=== PATIENT | male | born 2005 | race Asian ===

== ENCOUNTER 2023-09-18 02:28 | Emergency (ER) | payer OTHER, SELFPAY ==
[2023-09-18 02:39] VITALS: BP 154/89; PULSE 77; RESP 20; TEMP 36.5; O2SAT 96; BMI 27.9
--- NOTE | 2023-09-18 02:47 | ED.PSYCH ---
HPI - Psych General Date Seen: 09/18/23 Chief Complaint: Psychiatric Problem/Disorder Stated Complaint: suicidal Time Seen by Provider: 09/18/23 02:32 Source: patient Mode of arrival: other ([employer]) Limitations: no limitations History of Present Illness HPI Narrative: Patient is a 18-year-old male with no pertinent medical problems presenting to emergency department for suicidal ideation. He is brought in by [employer]. He states some people he knew no post is an Instagram post said accused him of doing something he claims he did not do. After that he was depressed and suicidal. This has been going on for the past few hours. He states he had a lot of caffeine pills in his room and he was thinking about taking them. Patient then told his friend about his thoughts and they called [employer] who brought him to the emergency department. He has no history of self-harm. Does states he had thoughts of suicide a few years ago but never made any plan or had any attempts. Denies homicidal ideation. Denies visual or auditory hallucinations. Denies headache, vision changes, chest pain, shortness of breath, weakness, numbness. Related Data Home Medications Medication Instructions Recorded Confirmed No Known Home Medications 09/18/23 09/18/23 Allergies Allergy/AdvReac Type Severity Reaction Status Date / Time No Known Drug Allergies Allergy Verified 09/18/23 02:43 Review of Systems Status of ROS: Reports: 10 or more systems reviewed and unremarkable except as noted in History and below Exam Narrative: Exam Narrative: Const: Well-nourished, Well-developed, in mild distress Eyes: PERRL, no conjunctival injection, and symmetrical lids HENT: Atraumatic external nose and ears. Moist mucous membranes. Neck: Symmetric, trachea midline, No thyromegaly. CVS: RRR, No murmurs or gallops. Peripheral pulses 2+ and equal in all extremities RESP: Unlabored respiratory effort. Clear to auscultation bilaterally. GI: Nontender/Nondistended, No rebound or guarding. MSK:Extremities w/o deformity, Normal Active ROM Skin: Warm, Dry. No rashes or lesions. Neuro: Normal Muscle tone, No focal neurological deficits. Psych: Awake, Alert, & Oriented x3. Appropriate mood and affect. Const: Vital Signs, click to edit/add: Vital Signs - 24 hr 09/18/23 02:39 Temperature 97.7 F Pulse Rate [Pulse Oximeter] 77 Respiratory Rate 20 Blood Pressure [Ri ght Upper Arm] 154/89 H Pulse Oximetry 96 Oxygen Delivery Me thod Room Air Course Vital Signs Vital signs: Initial Vital Signs Temperature 97.7 F 09/18/23 02:39 Temperature Source Temporal Artery Scan 09/18/23 02:39 Pulse Rate 77 09/18/23 02:39 Pulse Strength 3+ Normal 09/18/23 02:39 Respiratory Rate 20 09/18/23 02:39 Blood Pressure 154/89 H 09/18/23 02:39 Blood Pressure Mean 110 H 09/18/23 02:39 Blood Pressure Position Sitting 09/18/23 02:39 Pulse Oximetry 96 09/18/23 02:39 Oxygen Delivery Method Room Air 09/18/23 02:39 Vital Signs Temperature 97.7 F 09/18/23 02:39 Pulse Rate 77 09/18/23 02:39 Respiratory Rate 20 09/18/23 02:39 Blood Pressure 154/89 H 09/18/23 02:39 Pulse Oximetry 96 09/18/23 02:39 Oxygen Delivery Method Room Air 09/18/23 02:39 Temperature 97.7 F 09/18/23 02:39 Pulse Rate 77 09/18/23 02:39 Respiratory Rate 20 09/18/23 02:39 Blood Pressure 154/89 H 09/18/23 02:39 Pulse Oximetry 96 09/18/23 02:39 Oxygen Delivery Method Room Air 09/18/23 02:39 MDM - Psych MDM Narrative Medical decision making narrative: Patient is 18-year-old male presents to the emergency department for mental health evaluation. After speaking him do not think he is an imminent threat to hurt himself or others per we will have him evaluated by [facility]. Do of the lab work is necessary at this time as I expect the patient to be discharged. He was evaluated by [facility] and they also determined he is safe to go home. They made a safety plan and the patient states he will reach out to resources at his camp is. He will go back and stay with his friends. Safety plan was made. He will be discharged at this time he is agreeable to this plan. Discharge Plan Discharge Clinical Impression: Depression Patient Disposition: Home, Self-Care Condition: Stable Instructions: Depression (ED) Additional Instructions: Make sure to follow safety plan you created with [facility]. Is important you reach out to your campus resources. Return to emergency department for new worsening symptoms Prescriptions: No Action No Known Home Medications Follow Up/Referrals: Provider,Not a Local [Primary Care Provider] - Stand Alone Forms: CBIT A/S Info Instructions
== END 2023-09-18 07:20 | disposition home or self-care (01) ==
PROVIDERS: Emergency Provider Student in an Organized Health Care Education/Training Program
DX: F32.A Depression, unspecified (principal)
CPT/HCPCS: 99282; 99283

== ENCOUNTER 2024-10-06 15:32 | Emergency (ER) | payer OTHER, SELFPAY ==
--- OUTSIDE RECORDS SUMMARY | 2024-10-06 15:34 | XMS_ITS | Clinical Summary ---
Author Organization [employer] [employer] [facility] Address [address] [place] [id number] Care Team Providers Care Drilling And Production Superintendent Name Role Phone Josh Saul MD Primary Care P rovider Allergies No known active allergies Medications FLUoxetine (PROzac) 20 mg capsule Take 20 mg by mouth once daily. Active Encounters Date Type Department Care Team Description 07/22/2024 Patient Outreach [facility] - Care Management Navigation/[facility] [address] [place] [id number] Edna Joyner [facility]-Community Resource Navigation from Last 3 Months Immunizations Immunization Administration Dates Next Due MMR 11/05/2022,07/30/2022 Meningococcal Vaccine (Menactra) 07/30/2022 Polio Virus, Unspecified 08/02/2022 Tdap 07/30/2022 Social History Tobacco Use Types Packs/Day Years Used Date Smoking Tobacco: Some Days Cigarettes Smokeless Tobacco: Never Tobacco Cessation:Ready to Q uit: Not Asked; Counseling Given: Not Answered Alcohol Use Standard Drinks/Week Comments Yes 0 (1 standard drink = 0.6 oz pur e alcohol) a couple beers on the weekend Social Connections Answer Date Recorded Do you often feel lonely or isolated from those around you? 0 07/02/2024 Financial Resource Strain Answer Date R ecorded Difficulty of Paying Living Expenses 1 07/02/2024 Difficulty of Paying Living Expenses 2 07/02/2024 Food Insecurity Answer Date Recorded Do you worry your food will run out before you are able to buy more? 1 07/02/2024 Transportation Needs Answer Date Record ed Does lack of transportation keep you from medica l appointments? 2 07/02/2024 Does lack of transportation keep you from work, meetings or getting things that you need? 1 07/02/2024 Housing Stability Answer Date Recorded What is your housing situation today? 1 07/02/2024 Utilities Answer Date Recorded Do you have trouble paying f or utilities (for example, heat, electricity, water, phone)? 1 07/02/2024 Sex and Gender Information Value Date Recorded Sex Assigned at Not on file Legal Sex Male 3:12 PM SHIP PURSER Gender Identity Not on file Sexual Orientation Not on file Obstetrics History Last Filed Vital Signs Vital Sign Reading Time Taken Comments Blood Pressure 118/79 07/02/2024 10:07 AM SHIP PURSER Pulse 79 07/02/2024 10:07 AM SHIP PURSER Temperature - - Respiratory Rate - - Oxygen Saturation 100% 07/02/2024 10: 07 AM SHIP PURSER Inhaled Oxygen Concentration - - Weight 91.5 kg (201 lb 12.8 oz) 025 10:07 AM SHIP PURSER Height - - Body Mass Index - - Plan of Treatment Health Maintenance Due Date Last Done Comments Depression screening for age 12+ 2015 HIV for age 15-65 2018 HPV series for age 9-26 (1 - Male 3-dose series) 2018 BMI (ht and wt on same day) for age 18+ 2021 Pneumococcal series for age 6-49 (1 of 2 - PCV) 2022 COVID-19 vaccine series ( - season) 2024 Influenza Vaccine (Season Ended) 2025 Tetanus booster 07/30/2032 07/30/2022 Meningococcal series for age 11-21 Aged Out 2022 No longer eligible based on patient's age to complete this topic Tdap Completed 07/30/2022 Hepatitis C screening for ag e 18-79 Completed 07/02/2024 Procedures Procedure Name Priority Date/Time Associated Diagnosis Comments ANTI HCV Routine 07/02/2024 10:53 AM SHIP PURSER Hepatitis B surface antigen positive from Last 3 Months or Most Recently Relevant to Health Maintenance Results * ANTI HCV (07/02/2024 10:53 AM SHIP PURSER) HEPATITIS C ANTIBODY NON-REACTI VE NON-REACT STEPH [facility] Comment: HCV antibody was non-reactive. There is no laboratory evidence of HCV infection. In most cases, no further action is required. However, if recent HCV exposure is suspected, a test for HCV RNA (test code 87454) is suggested. For additional information please refer to http://education.Snipi/faq/BSI01k7 (This link is being provided for informational/ educational purposes only.) Blood BLOOD SPECIMEN / Unknown 07/02/2024 10:53 AM SHIP PURSER 07/02/2024 10:53 AM SHIP PURSER Josh Saul MD SEND OUTS Final Result [employer] [facility] [address] [place] [address], [facility] [address] [place] [address] from Last 3 Months or Most Recently Relevant to Health Maintenance Insurance [facility] PPO Care Teams Drilling And Production Superintendent Relationship Specialty Start Date End Date Josh Saul MD [address] [place] [id number] PCP - General Family Practice 07/02/24
[2024-10-06 15:39] VITALS: BP 156/88; PULSE 82; RESP 18; TEMP 36.8; O2SAT 98; BMI 28.8
--- OUTSIDE RECORDS SUMMARY | 2024-10-06 16:04 | XMS_ITS | Clinical Summary ---
Author Organization [email or web address] [facility] Address [address] [place] [address] Care Team Providers Care Zipper Sewing Machine Operator Name Role Phone Josh Saul MD Primary Care P rovider Allergies No known active allergies Medications FLUoxetine (PROzac) 20 mg capsule Take 20 mg by mouth once daily. 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 DISK ASSEMBLER Gender Identity Not on file Sexual Orientation Not on file Obstetrics History Last Filed Vital Signs Vital Sign Reading Time Taken Comments Blood Pressure 118/79 07/02/2024 10:07 AM GRAPHITE DISK ASSEMBLER Pulse 79 07/02/2024 10:07 AM GRAPHITE DISK ASSEMBLER Temperature - - Respiratory Rate - - Oxygen Saturation 100% 07/02/2024 10: 07 AM GRAPHITE DISK ASSEMBLER Inhaled Oxygen Concentration - - Weight 91.5 kg (201 lb 12.8 oz) 025 10:07 AM GRAPHITE DISK ASSEMBLER Height - - Body Mass Index - [...] Comments ANTI HCV Routine 07/02/2024 10:53 AM GRAPHITE DISK ASSEMBLER Hepatitis B surface antigen positive from Last 3 Months or Most Recently Relevant to Health Maintenance Results * ANTI HCV (07/02/2024 10:53 AM GRAPHITE DISK ASSEMBLER) HEPATITIS C ANTIBODY NON-REACTI VE NON-REACT STEPH [facility] Comment: HCV antibody was non-reactive. There is no laboratory evidence of HCV infection. In most cases, no further action is required. However, if recent HCV exposure is suspected, a test for HCV RNA (test code 27365) is suggested. For additional information please refer to http://education.IAT-Auto/faq/GGL36s3 (This link is being provided for informational/ educational purposes only.) Blood BLOOD SPECIMEN / Unknown 07/02/2024 10:53 AM GRAPHITE DISK ASSEMBLER 07/02/2024 10:53 AM GRAPHITE DISK ASSEMBLER Josh Saul MD SEND OUTS Final Result [employer] [facility] [address] [place] [address], [facility] [address] [place] [address] from Last 3 Months or Most Recently Relevant to Health Maintenance Insurance [facility] PPO Care Teams Zipper Sewing Machine Operator Relationship Specialty Start Date End Date Josh Saul MD [address] [place] [id number] PCP - General Family Practice 07/02/24
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
== END 2024-10-06 18:51 | disposition home or self-care (01) ==
PROVIDERS: Emergency Provider Emergency Medicine
DX: R45.851 Suicidal ideations (principal); F32.A Depression, unspecified
CPT/HCPCS: 99283; 99284; Q3014